=== PATIENT | female | born 1980 | race Caucasian/White ===

== ENCOUNTER 2016-05-26 09:06 | Day surgery (SDC) | payer OTHER ==
--- NOTE | ~2016-05-26 | EGD ---
EGD REPORT [facility] [address] [address] NAME: CLAU BILLINGSLEY : [birth year] STATUS : REG [facility]#: [id number] AGE: 35 ADM/REG DATE : 05/26/16 MR#: [id number] REPORT SERV DATE: 05/26/16 DICTATED BY: OSIEL ARTEAGA III DATE: 05/26/16 REPORT STATUS : Draft [facility] DATE: 05/26/16 Endoscopy Center Patient Name: Clau Billingsley Date of : 1980 Attending MD: OSIEL ARTEAGA III, MD Procedure Date No Time: 05/26/2016 Procedure: Upper GI endoscopy Indications: Follow-up of polyps in the duodenum, Familial Adenomatous Polyposis, Follow-up of gastric polyps Referring MD: CHRISTINA MOTLEY MD Medicines: Propofol per Anesthesia Complications: No immediate complications. Procedure: Pre-Anesthesia Assessment: - ASA Grade Assessment: [ASA Grade]. - ASA Grade Assessment: I - A normal, healthy patient. After obtaining informed consent, the endoscope was passed under direct vision. Throughout the procedure, the patient's blood pressure, pulse, and oxygen saturations were monitored continuously. The GIF [id number] was introduced through the mouth, and advanced to the third part of duodenum. The Duodenoscope was introduced through the and advanced to the. The upper GI endoscopy was accomplished with ease. The patient tolerated the procedure well. Findings: The examined esophagus was normal. A small hiatus hernia was present. Multiple small sessile polyps with no bleeding and no stigmata of recent bleeding were found in the gastric fundus and in the gastric body. The polyp was removed with a hot snare. Resection and retrieval were complete. The examined duodenum was normal. Biopsies were taken of the papilla with a cold forceps for histology. Impression: - Normal esophagus. - Hiatus hernia. - Multiple gastric polyps. Resected and retrieved. - Normal examined duodenum. Biopsied. Recommendation: - Patient has a contact number available for emergencies. The signs and symptoms of potential delayed complications were discussed with the patient. Return to normal activities tomorrow. Written discharge instructions were provided to the patient. EGD REPORT [address] [address] NAME: CLAU BILLINGSLEY : [birth year] STATUS : REG [facility] [place] PAT#: [id number] AGE: 35 ADM/REG DATE : 05/26/16 MR#: [id number] REPORT SERV DATE: 05/26/16 DICTATED BY: OSIEL ARTEAGA III DATE: 05/26/16 REPORT STATUS : Draft TRANSCRIBED BY: [employer] DATE: 05/26/16 - Discharge patient to home. - Return to previous diet. - Follow an antireflux regimen. - Continue present medications. - Await pathology results. Procedure Code(s): --- Professional --- 48736, Esophagogastroduodenoscopy, flexible, transoral; with removal of tumor(s), polyp(s), or other lesion(s) by snare technique 99751, 59, Esophagogastroduodenoscopy, flexible, transoral; with biopsy, single or multiple Diagnosis Code(s): --- Professional --- K44.9, Diaphragmatic hernia without obstruction or gangrene K31.7, Polyp of stomach and duodenum D12.6, Benign neoplasm of colon, unspecified CPT copyright 2013 [employer]. All rights reserved. The codes documented in this report are preliminary and upon epilepsy physician review may be revised to meet current compliance requirements. OSIEL ARTEAGA III, MD 05/26/2016 11:27 AM This report has been signed electronically. Number of Addenda: 0 Note Initiated On: 05/26/2016 10:16 AM Scope Withdrawal Time 0 hours 0 minutes 0 seconds [id number] [place] [id number]
[~2016-05-26 09:06] MED LIST: ALIGN4 MG PO; ALLEGRA180 PO; AT10 PO; AT25 PO; CEFT2 PO; CIP5 PO; CLIN150 PO; COLCH6 PO; FISH-EPA1000 MG PO; FLAGIV500 IV; FLORASTOR250 MG PO; FLUCON1 PO; MELATONIN2.5 M1 PO; MULTIPLE VIT PO; P20 PO; PROBIOTIC PO; PROVERA 2.5 MG2.5 MG PO; SEPTRA DS1 TAB PO; SPIRO50 PO; T PO; TAGAMET 200 MG200 MG PO; ZEGERID1 CA1 PO; ZOFRAN4 PO
== END 2016-05-26 23:59 | disposition home or self-care (01) ==
LOC: DMU 09:06
PROVIDERS: Internal Medicine Gastroenterology
PROC: 0DB98ZX Excision of Duodenum, Via Natural or Artificial Opening Endoscopic, Diagnostic (ICD-10-PCS; 2016-05-26)
PROC: 0DB68ZZ Excision of Stomach, Via Natural or Artificial Opening Endoscopic (ICD-10-PCS; principal; 2016-05-26 10:30)
DX: K31.7 Polyp of stomach and duodenum (principal); K29.80 Duodenitis without bleeding; K44.9 Diaphragmatic hernia without obstruction or gangrene; K21.9 Gastro-esophageal reflux disease without esophagitis; Z88.5 Allergy status to narcotic agent; Z88.8 Allergy status to other drugs, medicaments and biological substances; Z88.1 Allergy status to other antibiotic agents; Z90.89 Acquired absence of other organs; Z79.899 Other long term (current) drug therapy; Z98.890 Other specified postprocedural states
CPT/HCPCS: 84703; 88305